=== PATIENT | male | born 1985 | race Caucasian/White ===

== ENCOUNTER 2021-07-27 02:11 | Emergency (ER) | payer SELFPAY ==
[2021-07-27] MEDS ORDERED: Sodium Chloride 0.9% 1,000 ML IV ONE (02:54)
[2021-07-27] MEDS ORDERED: Haloperidol Lactate 5 MG/ML SDV IM ONE (02:54)
[2021-07-27] MEDS ORDERED: Benztropine 1 MG Tab PO STA (02:54)
[2021-07-27] MEDS ORDERED: Ondansetron 4 MG/2 ML SDV IVPUSH ONE (02:54)
[2021-07-27] MEDS ORDERED: Ketorolac 30 MG/ML SDV IVPUSH STA (02:54)
== END 2021-07-27 03:50 | disposition home or self-care (01) ==
LOC: JD.ED 02:11
DX: G43.109 Migraine with aura, not intractable, without status migrainosus (principal); Z87.891 Personal history of nicotine dependence
CPT/HCPCS: 96372; 96374; 96375; 99283; A9270; J1630; J1885; J2405; J7030; 99284